=== PATIENT | male | born 1965 | race Caucasian/White ===

== ENCOUNTER → 2016-08-25 | Outpatient (CLI) | payer MEDICAID ==
[~2016-08-25] MED LIST: REGADENOSON INJ 0.4 MG/5 ML DISP.SYRIN IV ONE
--- NOTE | 2016-08-25 20:57 | DRAGON STRESS TEST REPORT ---
ntravenous Lexiscan Cardiolite stress test using single photon emmision computerized tomography. Date of procedure: 08/25/2016 Ordering Provider: Dr. Montse Gonzales Indication: Dyspnea on exertion.. Coronary risk factors: Age, non-insulin- dependent diabetes mellitus type II and hypertension, and family history of coronary artery disease. Resting EKG: Sinus Rhythm. Low voltage throughout. Stress EKG:[ No changes of ischemia. The patient had no chest pain or discomfort, and there were no arrhythmias seen. Reason for termination: Protocol. Conclusions: Normal EKG and hemodynamic response to IV Lexiscan. Nuclear data: At rest the patient was given 15.75 millicuries of technetium 99m sestamibi injected intravenously. As per protocol rest non gated SPECT images were obtained. Subsequently the patient was given intravenous Lexiscan at a dose of 0.4 mg in 5 mL intravenously, followed by flush with normal saline. Subsequently the stress dose of 46.8 millicuries of technetium 99m sestamibi was injected intravenously. As per protocol stress gated images were obtained. Nuclear interpretation: Review of images showed there is bowel contamination artifact. As a poor quality study. There is artifact involving the distal septum and the distal postero- lateral wall in the rest images only . The rest of the segments of the myocardium segments in the rest images. All segments of the myocardium had normal perfusion post stress with IV Lexiscan. All segments of the myocardium had normal motion, contraction, and thickening by gated study. T. I D. ratio was normal at 0.98. Computer read rest, and stress left ventricular ejection fraction were 48 %, and 60 %, respectively. Visually both the stress and rest ejection fractions were normal, and greater than 60 %. Conclusion: 1. There is no scintigraphic evidence of Lexiscan induced myocardial ischemia. 2. There is no scintigraphic evidence of myocardial infarction/scar. 3 There is artifact involving the distal septum and the distal postero- lateral wall in the rest images only . Recommendations: Aggressive risk factor modification, and treating the underlying co- morbidities. MTDD
== END ==
LOC: RAD 08:14
PROVIDERS: ATTEND Specialist
DX: Z01.810 Encounter for preprocedural cardiovascular examination (principal); R94.31 Abnormal electrocardiogram [ECG] [EKG]; R06.00 Dyspnea, unspecified
CPT/HCPCS: 93017; 78452; A9500; J2785; Q9969

== ENCOUNTER 2018-09-11 08:10 | Day surgery (SDC) | payer MEDICARE ==
[~2018-09-11 08:10] MED LIST changes: +PROPOFOL INJ 200 MG/20 ML VIAL IV ONE; -REGADENOSON INJ 0.4 MG/5 ML DISP.SYRIN IV ONE
[2018-09-11] MEDS ORDERED: PROPOFOL INJ 200 MG/20 ML VIAL IV ONE ×2 (09:09→09:17)
[2018-09-11 09:58] VITALS: BP 137/79
--- NOTE | 2018-09-11 15:09 | Operative Report ---
Operative Report DATE OF SURGERY: 09/11/18 Operative Report: The risks, benefits and alternatives of the procedure including the risk of bleeding, perforation requiring surgery have been explained to the patient in detail and informed consent has been obtained. The patient is taken back to the endoscopy suite and placed in the left, lateral decubital position. Timeout was called. Propofol medication is administered. Rectal examination is done which did not reveal any masses, tears or fissures. An Olympus videoscope was introduced into the patient's rectum. The scope was then carefully advanced all the way to the cecum. The cecum was identified by the usual anatomical landmarks including the ileocecal valve as well as the appendiceal office. Photodocumentation is obtained. The scope was then sequentially pulled back via the various segments of the colon including the ascending colon, hepatic flexure , transverse colon, splenic flexure, descending colon and into the rectosigmoid portions of the colon. Retroflexion maneuver was performed. PREOPERATIVE DIAGNOSIS: Personal history of polyp POSTOPERATIVE DIAGNOSIS: Splenic flexure polyp that was removed via snare polypectomy and retrieved. Left side colon Inflammation status post biopsy. Internal hemorrhoids OPERATION: Colonoscopy with snare polypectomy. Colonoscopy with biopsy SURGEON: SHANKAR ARCE ANESTHESIA: LMAC TISSUE REMOVED OR ALTERED: As noted above. COMPLICATIONS: None. ESTIMATED BLOOD LOSS: As noted above. INTRAOPERATIVE FINDINGS: As noted above. PROCEDURE: Patient tolerated the procedure well. No immediate postprocedure complications are noted. Patient discharged in good condition. Discharge date 09/11/2018. Discharge diet: Regular. Discharge activity: Regular. 2-3-week follow-up to discuss findings. Patient is instructed to call the office or proceed to the emergency room should there be any further problems or questions. I will wait on the pathology. 3-5-year surveillance colonoscopy.
== END 2018-09-11 10:00 | disposition home or self-care (01) ==
LOC: END 08:10
PROVIDERS: ATTEND Internal Medicine Gastroenterology
DX: Z12.11 Encounter for screening for malignant neoplasm of colon (principal); D12.6 Benign neoplasm of colon, unspecified; K64.8 Other hemorrhoids; Z86.010 Personal history of colon polyps; E78.5 Hyperlipidemia, unspecified; J44.9 Chronic obstructive pulmonary disease, unspecified; I10 Essential (primary) hypertension; E03.9 Hypothyroidism, unspecified; N40.0 Benign prostatic hyperplasia without lower urinary tract symptoms; Z87.891 Personal history of nicotine dependence; Z79.899 Other long term (current) drug therapy; Z79.84 Long term (current) use of oral hypoglycemic drugs; Z79.4 Long term (current) use of insulin
CPT/HCPCS: 45380; 45385; 82962; 88304 ×2; J2704; 811

== ENCOUNTER → 2019-01-17 | Outpatient (CLI) | payer MEDICARE | LOC: OD 13:02 | PROVIDERS: ATTEND Internal Medicine Geriatric Medicine | DX: E11.43 Type 2 diabetes mellitus with diabetic autonomic (poly)neuropathy (principal) | CPT/HCPCS: 36415; 86141 ==

== ENCOUNTER → 2019-01-22 | Outpatient (CLI) | payer MEDICARE ==
--- NOTE | 2019-01-22 16:20 | RADIOLOGY REPORT (SQ) ---
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 TECHNIQUE: Grayscale ultrasound, Doppler velocity and spectra, and color Doppler images acquired of the extra-cranial carotid and vertebral arteries. Images stored on PACS. LIMITATIONS: None. FINDINGS: RIGHT CAROTID CCA Velocities: Within normal limits. ICA Velocities Peak systolic 57 cm/s. End diastolic 27 cm/s. Proximal ICA/CCA peak systolic ratio 0.7. Spectra normal. No significant plaque. LEFT CAROTID CCA Velocities: Within normal limits. ICA Velocities Peak systolic 92 cm/s. End diastolic 35 cm/s. Proximal ICA/CCA peak systolic ratio 1.06. Spectra normal. No significant plaque. VERTEBRAL ARTERIES: Antegrade flow. Normal waveforms. SUBCLAVIAN ARTERIES: No finding. OTHER: No other significant finding. IMPRESSION: NO HEMODYNAMICALLY SIGNIFICANT STENOSIS. COMMENT: Quality ID #[id number]: Velocity criteria are extrapolated from the diameter data as defined by t he Society of Radiologists in Ultrasound Consensus Conference. Radiology 2003: 229; 340-346. TECHNICAL DOCUMENTATION: JOB ID: [id number] [place]-72 2010 [employer]- All Rights Reserved Reading location - IP/workstation name: [email or web address]
--- NOTE | 2019-01-23 09:20 | XCELERA REPORT ---
[address] [address] Lower Extremity Arterial Evaluation Name: AKASH RAMIREZ Age: 53 yrs Gender: Male : 1965 Patient Status: Outpatient Patient Location: Study Date: 01/22/2019 01:10 PM Procedure: A color flow and duplex scan of the lower extremity arteries was performed bilaterally with velocity and waveform anaylsis. Ankle brachial indicies performed. Reason For Study: DIABETIC NEUROPATHY TYPE 2 Ordering Physician: BRYON KEMP Performed By: Nolvia Quintana Measurements and Calculations Right Left MICROWAVE SUPERVISOR PSV 84.2 96.2 cm/sec Prox PFA PSV 76.1 60.3 cm/sec Prox SFA PSV 101.2 120.1 cm/sec Mid SFA PSV -73.5 89.3 cm/sec Dist SFA PSV -95.5 -73.5 cm/sec Prox Pop A PSV 38.4 cm/sec Dist Pop A PSV -48.0 cm/sec Mid STEFANO PSV 44.3 65.0 cm/sec Mid ASBESTOS CLOTH INSPECTOR PSV 32.8 77.3 cm/sec Robbi Pedis PSV 39.8 108.4 cm/sec Right Side Arterial Evaluation Normal velocity and triphasic waveforms noted from the Common Femoral artery to the infrageniculate vessels . Ankle Brachial index 0.8. Left Side Arterial Evaluation Normal velocity and triphasic waveforms noted from the Common Femoral artery to the infrageniculate vessels . Ankle Brachial index 1.0. Interpretation Summary No hemodynamically significant lesions in the bilateral lower extremities, on duplex imaging, at rest. GRIFFIN's support the duplex findings of no significant arterial compromise. : BRYON KEMP > Krzysztof Noriega
== END ==
LOC: SP 12:46
PROVIDERS: ATTEND Internal Medicine Geriatric Medicine
DX: E11.43 Type 2 diabetes mellitus with diabetic autonomic (poly)neuropathy (principal)
CPT/HCPCS: 93880; 93925

== ENCOUNTER → 2020-08-05 | Outpatient (CLI) | payer MEDICARE ==
--- NOTE | 2020-08-06 15:38 | RADIOLOGY REPORT (SQ) ---
EXAM DESCRIPTION: FOOT RIGHT 2 VIEWS IMAGES COMPLETED DATE/TIME: 08/06/2020 3:03 pm REASON FOR STUDY: (M79.671)PAIN IN RIGHT FOOT(S52.501A)UNSP FRACTURE OF THE LOWER END OF RIGH S52.50 1A UNSP FRACTURE OF THE LOWER END OF RIGHT RADIUS, INI X58.XXXA EXPOSURE TO OTHER SPECIFIED FACTORS , INITIAL ENCOUN M79.671 PAIN IN RIGHT FOOT COMPARISON: None. NUMBER OF VIEWS: Five views. TECHNIQUE: AP, lateral and oblique with weight bearing radiographic images acquired of the right fo ot. LIMITATIONS: None. FINDINGS: MINERALIZATION: Normal. BONES: No acute fracture or dislocation. No worrisome bone lesions. Plantar calcaneal spur. JOINTS: Intact. No erosions. SOFT TISSUES: No swelling. No calcifications. OTHER: No other significant finding. IMPRESSION: No acute findings. TECHNICAL DOCUMENTATION: JOB ID: [id number] 2010 [employer]- All Rights Reserved Reading location - IP/workstation name: [email or web address]
== END ==
LOC: RAD 15:36
PROVIDERS: ATTEND Podiatrist Foot & Ankle Surgery
DX: S52.501A Unspecified fracture of the lower end of right radius, initial encounter for closed fracture (principal); X58.XXXA Exposure to other specified factors, initial encounter; M79.671 Pain in right foot